=== PATIENT | female | born 1970 | race Caucasian/White ===

== ENCOUNTER 2019-07-22 19:20 | Emergency (ER) | payer SELFPAY ==
[2019-07-22 19:33] VITALS: BP 139/82; PULSE 93; RESP 18; TEMP 36.7; O2SAT 100; BMI 29.3
--- NOTE | 2019-07-22 19:43 | ED_ITS ---
HPI - Headache General: Chief Complaint: Headache Stated Complaint: poss sinus infection Time Seen by Provider: 07/22/19 19:37 Source: patient Mode of arrival: ambulatory Limitations: no limitations History of Present Illness: HPI Narrative: Patient comes in today for complaints of sinus pressure and pain. Patient also reports some congestion in her chest. On exam patient appears mildly unwell. Patient appears in no pain. Review of Systems General: Reports: 10 or more systems reviewed and unremarkable except in HPI and below ENMT: Reports: nasal discharge Resp: Reports: non-productive cough PFSH ED PFSH: Social History Smoking and tobacco status: never smoked Physical Exam Const: COMMON NORMALS: no apparent distress and oriented x3 GENERAL APPEARANCE: cooperative HENMT: COMMON NORMALS: normocephalic, external ears normal, EAC's normal, TM's normal bilaterally and external nose normal HEAD & SCALP: normal to inspection and normocephalic FACE & SINUS: normal facial exam NOSE: external nose normal GENERAL EAR: hearing not grossly impaired EXTERNAL EAR: Yes external ears normal EXTERNAL AUDITORY CANAL: EAC's normal TYMPANIC MEMBRANE: TM's normal bilaterally MOUTH: oral and palatal mucosa normal THROAT: posterior oropharynx abnormal cobblestoning and erythema Eye: COMMON NORMALS: PERRL and EOMs intact bilaterally PUPIL: Yes PERRL Neck/C-Spine: COMMON NORMALS: full ROM and no lymphadenopathy Lymph: LYMPHATIC: no lymphedema noted Chest: COMMONS NORMALS: inspection of chest normal and palpation of chest normal Resp: COMMON NORMALS: normal respiratory effort and clear to auscultation bilaterally AUSCULTATION: clear to auscultation bilaterally Cardio: COMMON NORMALS: regular rate and regular rhythm RATE: regular rate RHYTHM: regular rhythm GI: COMMON NORMALS: normal to inspection, nondistended, normoactive bowel sounds and non-tender : COMMON NORMALS: Yes no CVA tenderness BLADDER/KIDNEY EXAM: Yes no CVA tenderness Back/Pelvis: COMMON NORMALS: no CVA tenderness and thoracic and lumbar spine normal to inspection Extremity: COMMON NORMALS: normal to inspection GENERAL: No edema Neuro: COMMON NORMALS: oriented x3, moves all extremities and no focal motor deficits Psych: COMMON NORMALS: mental status grossly normal and cooperative Skin: COMMON NORMALS: no rashes or lesions noted GENERAL SKIN EXAM: no rashes or lesions noted Course Vital Signs: Vital signs: Vital Signs Temperature 98.0 F 07/22/19 19:33 Pulse Rate 93 07/22/19 19:33 Respiratory Rate 18 07/22/19 19:33 Blood Pressure 139/82 07/22/19 19:33 Pulse Oximetry 100 07/22/19 19:33 MDM - Headache MDM Narrative: Medical decision making narrative: Patient comes in with head congestion and cough for the last 2 to 3 days. Patient has been guarded on what medications to use due to her cervical cancer. Patient appears well. Patient appears in mild pain due to headache. Exam notes posterior pharynx is erythematous, bilateral nasal mucosa are erythematous. Bilateral tympanic membranes are clear. Respirations are even lungs are clear to auscultation. Vital signs are normal. Differential diagnosis includes influenza, rhinosinusitis, viral syndrome, upper respiratory infection. Reviewed exam with patient recommended treatment with dexamethasone injection, to follow with amoxicillin p.o. and Flonase spray. Patient reports understanding of care plan and need for follow-up. Discharge Plan Discharge Patient Disposition: Home, Self-Care Clinical Impression: Acute rhinosinusitis Condition: Stable Prescriptions: New amoxicillin 500 mg tablet 1,000 mg PO BID 10 Days Qty: 40 RF: 0 fluticasone propionate 50 mcg/actuation spray,suspension 1 spray INTRANASAL BID Qty: 15.8 RF: 0 Discharge Orders: Discharge Order (Routine); Ordered 07/22/19 Ordered By: Bayron Garcia Discharge Diet: Usual diet Discharge Activity: Increase activity as tolerated Patient Instructions: Acute Bacterial Rhinosinusitis (ED) Activity Restrictions/Additional Instructions: Drink plenty of fluids Antibiotics as directed Steroid nasal spray for nasal congestion and discomfort Coding Level of Care Code ED Video Editing Internship for Leoncio Fwd Exam Comprehensive
[2019-07-22] MEDS: dexamethasone 10 mg/mL INJ IM (19:49)
[2019-07-22 20:38] VITALS: BP 129/82; PULSE 90; RESP 16; TEMP 36.6; O2SAT 99
== END 2019-07-22 20:03 | disposition home or self-care (01) ==
PROVIDERS: Emergency Provider Nurse Practitioner Family
DX: J01.90 Acute sinusitis, unspecified (principal); C53.9 Malignant neoplasm of cervix uteri, unspecified
CPT/HCPCS: 96372; 96375; 99281; 99283; J1100

== ENCOUNTER 2019-08-23 13:24 | Emergency (ER) | payer SELFPAY ==
[2019-08-23] VITALS (7 sets, daily range): BP systolic 117–130; BP diastolic 75–97; PULSE 77–87; RESP 15–17; TEMP 36.8; O2SAT 97–100; BMI 29.0
--- NOTE | 2019-08-23 13:58 | ED_ITS ---
Documented by User: ZACK Piña 08/24/19 17:23 HPI - Dizziness General: Chief Complaint: Dizziness Stated Complaint: Dizzy, aches and pains, nausea Time Seen by Provider: 08/23/19 13:33 History of Present Illness: HPI Narrative: Patient is a 49-year-old female who comes to the ED with dizziness. Patient has a past medical history of stage IV cervical cancer. Patient woke up today with room spinning dizziness. Patient says it gets worse if she lays flat or if she is up moving around. The dizziness improves if she sits upright. Patient described having some nasal drainage and congestion recently. She also feels a little congested with pressure in the ears. She currently has nausea but has not vomited. Associated symptoms: Reports nausea and nasal congestion; Denies chest pain, chills, headache(s), palpitations or vomiting Associated neuro symptoms: Deny numbness in extremities Review of Systems Const: Denies: fever, chills or fatigue Eyes: Denies: change in vision or eye discomfort ENMT: Reports: nasal discharge and nasal congestion; Denies: throat pain or painful swallowing Card: Denies: chest pain, palpitations, edema, swelling of feet/ankles, shortness of breath on exertion or shortness of breath when lying down Resp: Denies: shortness of breath, productive cough or non-productive cough GI: Reports: abdominal pain (chronic issue since Cervical cancer diagnosis), nausea and diarrhea (chronic); Denies: vomiting, constipation or blood in stool : Denies: flank pain, painful urination or blood in urine Musc: Denies: neck pain, back pain or extremity swelling Skin/Breast: Denies: rash or new lesion Neuro: Reports: dizziness and vertigo; Denies: headache, numbness in extremities or weakness in extremities PFS ED PFSH: Social History Smoking and tobacco status: never smoked Physical Exam Const: COMMON NORMALS: oriented x3 HENMT: COMMON NORMALS: normocephalic HEAD & SCALP: normocephalic TYMPANIC MEMBRANE: TM abnormal TM laterality: right (no erythema) Details: fluid behind TM (white/yellow fluid behind ears) and left (No erythema) Details: fluid behind TM (white/yellow fluid behind ears) MOUTH: oral and palatal mucosa normal THROAT: posterior oropharynx normal and uvula midline Neck/C-Spine: COMMON NORMALS: supple GENERAL: Yes normal visual inspection Resp: COMMON NORMALS: normal respiratory effort, no retractions, no use of accessory muscles and clear to auscultation bilaterally AUSCULTATION: clear to auscultation bilaterally Cardio: COMMON NORMALS: regular rate, regular rhythm, S1 normal heart sound, S2 normal heart sound, no gallops, no clicks, no murmurs and peripheral pulses 2+ throughout RATE: regular rate RHYTHM: regular rhythm HEART SOUNDS: S1 normal and S2 normal PERIPHERAL PULSES: pulses 2+ throughout GI: COMMON NORMALS: normal to inspection, nondistended, normoactive bowel sounds, soft to palpation, non-tender and no masses PALPATION: Yes soft : COMMON NORMALS: Yes no CVA tenderness BLADDER/KIDNEY EXAM: Yes no CVA tenderness Back/Pelvis: COMMON NORMALS: no CVA tenderness Extremity: COMMON NORMALS: normal to inspection and normal capillary refill Neuro: COMMON NORMALS: oriented x3 and moves all extremities Skin: COMMON NORMALS: no rashes or lesions noted GENERAL SKIN EXAM: no rashes or lesions noted Course Reevaluation(s): Reevaluation #1: I spoke with patient after she got some IV fluids and the meclizine dose. Patient says her symptoms of dizziness have greatly improved and she is ready to go home and rest. Time: 15:53 Vital Signs: Vital signs: Vital Signs Temperature 98.2 F 08/23/19 13:50 Pulse Rate 78 08/23/19 16:14 Respiratory Rate 16 08/23/19 16:14 Blood Pressure 118/81 08/23/19 16:14 Pulse Oximetry 100 08/23/19 16:14 MDM - Dizziness Lab Data: Attestation: I reviewed the patient's lab results. Labs: Lab Results 08/23/19 08/23/19 08/23/19 Range/Units 14:36 14:36 14:44 WBC 4.7 (4.0-10.0) 10^3/ uL RBC 3.59 L (4.1-5.3) 10^6/u L Hgb 11.7 (11.5-15.3) g/dL Hct 35.0 L (37.0-47.0) % MCV 97.5 (81-99) fL MCH 32.6 (28.0-34.0) pg MCHC 33.4 (30.0-36.0) g/dL RDW 11.8 L (12.1-15.1) % Plt Count 188 (130-400) 10^3/c mm MPV 8.5 (7.4-10.4) fL Neut % (Auto) 51.6 % Lymph % (Auto) 35.7 % [place] % (Auto) 9.8 % Eos % (Auto) 2.1 % Baso % (Auto) 0.4 % Neut # (Auto) 2.4 (1.8-7.7) 10^3/u L Lymph # (Auto) 1.7 (0.8-4.8) 10^3/u L [place] # (Auto) 0.5 (0.2-0.9) 10^3/u L Eos # (Auto) 0.1 (0.0-0.8) 10^3/u L Baso # (Auto) 0.0 (0.0-0.1) 10^3/u L Nucleated RBC % (a uto) 0 % Nucleated RBCs # 0.0 /100WBC Sodium 142 (136-145) mmol/L Potassium 3.8 (3.5-5.1) mmol/L Chloride 102 (98-107) mmol/L Carbon Dioxide 29 (22-29) mmol/L Anion Gap 14.8 (5-19) BUN 9 (6-20) mg/dL Creatinine 0.7 (0.5-0.9) mg/dL GFR Calculation 89.7 L (90-130) mL/min Glucose 101 (65-115) mg/dL Calculated Osmolal ity 290 (285-295) mOsm/k g Calcium 10.1 (8.5-10.5) mg/dL Total Bilirubin 0.3 (0.15-1.2) mg/dL AST 18 (0-32) U/L ALT 12 (0-33) U/L Alkaline Phosphata se 85 (35-105) IU/L Total Protein 7.2 (6.6-8.7) g/dL Albumin 4.2 (3.5-5.2) g/dL Globulin 3.0 (1.3-4.6) g/dL Urine Color Yellow (Yellow) Urine Appearance Clear (CLEAR) Urine pH 6.5 (5-7) Ur Specific Gravit y 1.010 (1.005-1.030) Urine Protein Neg (Negative) Urine Glucose (UA) Norm (Normal) Urine Ketones Negative (Negative) Urine Blood Neg (Negative) Urine Nitrate Negative (Negative) Urine Bilirubin Neg (NEGATIVE) Urine Urobilinogen Norm (Negative) mg/dL Ur Leukocyte Lena ase Negative (Negative) Urine RBC None (0-2) /hpf Urine WBC None (0-5) /hpf Ur Squamous Epith Cells 0-4 H (0-5) Urine Bacteria Trace (NONE) Imaging Data^: CT Head: Attestation: I personally reviewed and interpreted this imaging study as follows: Radiologist's impression: [place] [id number] CT Scan Report Signed Patient: Valentina Redd Unit #: [id number] : 1970 Age/Sex: 49 / F ADM Date: 08/23/19 Loc: ER Room/Bed: Attending Dr: Ordering Provider/Ordering MD: Adam Reynoso Date of Service: 08/23/19 Procedure(s): CT head wo con* [id number] Accession Number(s): [id number] Report Number: [id number] WS: [id number] CT HEAD TECHNIQUE: Noncontrast CT of the head obtained from the skullbase to the vertex. CLINICAL INFORMATION: vertigo, metastatic cancer history COMPARISON: None. DLP: 777.[address] scans at [facility] use at least one of these dose optimization techniques: automated exposure control; mA and/or kV adjustment per patient size (includes targeted exams where dose is matched to clinical indication); or iterative reconstruction. FINDINGS: No evidence of intracranial hemorrhage or mass effect. Ventricular system and basal cisterns are patent. No extra-axial fluid collections. No evidence of mass or mass effect. Normal marcos-white d ifferentiation. Incidental slightly low-lying cerebellar tonsils. Paranasal sinuses and mastoid air cells are well aerated. .Normal visualized soft tissues. CT/CT head wo con* [id number] IMPRESSION: 1. No evidence of intracranial hemorrhage or mass effect. 2. Normal marcos-white differentiation. 3. No acute intracranial findings. Dictated By: Sam Street MD Signed By: Sam Street MD Signed Date/Time: 08/23/19 1530 DD/ 1524 Discharge Plan Discharge Patient Disposition: Home, Self-Care Clinical Impression: Dizziness Condition: Stable Prescriptions: New meclizine 25 mg tablet 25 mg PO DAILY PRN (Reason: dizziness) Qty: 20 RF: 0 No Action Tylenol Extra Strength 500 mg Tablet 500 mg PO PRN RF: 0 warfarin 2 mg tablet 2 mg PO DAILY RF: 0 Discharge Orders: Discharge Order (Routine); Ordered 08/23/19 Ordered By: Adam Reynoso Discharge Diet: Regular Discharge Activity: Increase activity as tolerated Patient Instructions: Vertigo (ED), Dizziness (ED) Activity Restrictions/Additional Instructions: Follow-up with your PCP in 5 to 7 days for reevaluation. Take the prescribed meclizine as needed for any future dizziness. Make sure you are drinking plenty of fluids and staying hydrated. Discharge Date/Time: 08/23/19 16:15 Coding Level of Care Code ED Resident Care Supervisor for Chg Fwd Exam Comprehensive Documented by User: Ward Navas DO 08/25/19 12:59 HPI - Dizziness General: Chief Complaint: Dizziness Stated Complaint: Dizzy, aches and pains, nausea Time Seen by Provider: 08/23/19 13:33 PFSH ED PFSH: Social History Smoking and tobacco status: never smoked Course Vital Signs: Vital signs: Vital Signs Temperature 98.2 F 08/23/19 13:50 Pulse Rate 78 08/23/19 16:14 Respiratory Rate 16 08/23/19 16:14 Blood Pressure 118/81 08/23/19 16:14 Pulse Oximetry 100 08/23/19 16:14 MDM - Dizziness MDM Narrative: Medical decision making narrative: Reviewed case with midlevel, agree with assessment and plan. Lab Data: Labs: Lab Results 08/23/19 08/23/19 08/23/19 Range/Units 14:36 14:36 14:44 WBC 4.7 (4.0-10.0) 10^3/ uL RBC 3.59 L (4.1-5.3) 10^6/u L Hgb 11.7 (11.5-15.3) g/dL Hct 35.0 L (37.0-47.0) % MCV 97.5 (81-99) fL MCH 32.6 (28.0-34.0) pg MCHC 33.4 (30.0-36.0) g/dL RDW 11.8 L (12.1-15.1) % Plt Count 188 (130-400) 10^3/c mm MPV 8.5 (7.4-10.4) fL Neut % (Auto) 51.6 % Lymph % (Auto) 35.7 % [place] % (Auto) 9.8 % Eos % (Auto) 2.1 % Baso % (Auto) 0.4 % Neut # (Auto) 2.4 (1.8-7.7) 10^3/u L Lymph # (Auto) 1.7 (0.8-4.8) 10^3/u L [place] # (Auto) 0.5 (0.2-0.9) 10^3/u L Eos # (Auto) 0.1 (0.0-0.8) 10^3/u L Baso # (Auto) 0.0 (0.0-0.1) 10^3/u L Nucleated RBC % (a uto) 0 % Nucleated RBCs # 0.0 /100WBC Sodium 142 (136-145) mmol/L Potassium 3.8 (3.5-5.1) mmol/L Chloride 102 (98-107) mmol/L Carbon Dioxide 29 (22-29) mmol/L Anion Gap 14.8 (5-19) BUN 9 (6-20) mg/dL Creatinine 0.7 (0.5-0.9) mg/dL GFR Calculation 89.7 L (90-130) mL/min Glucose 101 (65-115) mg/dL Calculated Osmolal ity 290 (285-295) mOsm/k g Calcium 10.1 (8.5-10.5) mg/dL Total Bilirubin 0.3 (0.15-1.2) mg/dL AST 18 (0-32) U/L ALT 12 (0-33) U/L Alkaline Phosphata se 85 (35-105) IU/L Total Protein 7.2 (6.6-8.7) g/dL Albumin 4.2 (3.5-5.2) g/dL Globulin 3.0 (1.3-4.6) g/dL Urine Color Yellow (Yellow) Urine Appearance Clear (CLEAR) Urine pH 6.5 (5-7) Ur Specific Gravit y 1.010 (1.005-1.030) Urine Protein Neg (Negative) Urine Glucose (UA) Norm (Normal) Urine Ketones Negative (Negative) Urine Blood Neg (Negative) Urine Nitrate Negative (Negative) Urine Bilirubin Neg (NEGATIVE) Urine Urobilinogen Norm (Negative) mg/dL Ur Leukocyte Lena ase Negative (Negative) Urine RBC None (0-2) /hpf Urine WBC None (0-5) /hpf Ur Squamous Epith Cells 0-4 H (0-5) Urine Bacteria Trace (NONE) Discharge Plan Discharge Patient Disposition: Home, Self-Care Clinical Impression: Dizziness Condition: Stable Prescriptions: New meclizine 25 mg tablet 25 mg PO DAILY PRN (Reason: dizziness) Qty: 20 RF: 0 No Action Tylenol Extra Strength 500 mg Tablet 500 mg PO PRN RF: 0 warfarin 2 mg tablet 2 mg PO DAILY RF: 0 Discharge Orders: Discharge Order (Routine); Ordered 08/23/19 Ordered By: Adam Reynoso Discharge Diet: Regular Discharge Activity: Increase activity as tolerated Patient Instructions: Vertigo (ED), Dizziness (ED) Activity Restrictions/Additional Instructions: Follow-up with your PCP in 5 to 7 days for reevaluation. Take the prescribed meclizine as needed for any future dizziness. Make sure you are drinking plenty of fluids and staying hydrated. Discharge Date/Time: 08/23/19 16:15 Coding Level of Care Code ED Resident Care Supervisor for Leoncio Fwd Exam Comprehensive
--- NOTE | 2019-08-23 14:21 | CT_ITS ---
WS: [id number] CT HEAD TECHNIQUE: Noncontrast CT of the head obtained from the skullbase to the vertex. CLINICAL INFORMATION: vertigo, metastatic cancer history COMPARISON: None. DLP: 777.[address] scans at [facility] use at least one of these dose optimization techniques: automat ed exposure control; mA and/or kV adjustment per patient size (includes targeted exams where dose is matched to clinical indication); or iterative reconstruction. FINDINGS: No evidence of intracranial hemorrhage or mass effect. Ventricular system and basal cisterns are thrasher nt. No extra-axial fluid collections. No evidence of mass or mass effect. Normal marcos-white different iation. Incidental slightly low-lying cerebellar tonsils. Paranasal sinuses and mastoid air cells are well aerated. .Normal visualized soft tissues. CT/CT head wo con* [id number] IMPRESSION: 1. No evidence of intracranial hemorrhage or mass effect. 2. Normal marcos-white differentiation. 3. No acute intracranial findings.
[2019-08-23 14:41] LABS: Basophils % 0.4 %; Eosinophils # 0.1 10^3/uL (0.0-0.8); Eosinophils % 2.1 %; Hemoglobin 11.7 g/dL (11.5-15.3); Lymphocytes # 1.7 10^3/uL (0.8-4.8); Lymphocytes % 35.7 %; Mean Corpuscular HGB Conc 33.4 g/dL (30.0-36.0); Mean Corpuscular Hemoglobin 32.6 pg (28.0-34.0); Mean Corpuscular Volume 97.5 fL (81-99); Mean Platelet Volume 8.5 fL (7.4-10.4); Monocytes # 0.5 10^3/uL (0.2-0.9); Monocytes % 9.8 %; Neutrophils # 2.4 10^3/uL (1.8-7.7); Neutrophils % 51.6 %; Nucleated Red Blood Cells % 0 %; Platelet Count 188 10^3/cmm (130-400); Red Blood Count 3.59 10^6/uL (4.1-5.3); Red Cell Distribution Width 11.8 % (12.1-15.1); White Blood Count 4.7 10^3/uL (4.0-10.0)
[2019-08-23] MEDS: meclizine 25 mg tablet PO (14:43)
[2019-08-23] MEDS: sodium chloride 0.9% 1,000 ML 999 ML IV (14:44)
[2019-08-23 14:55] LABS: Bilirubin Urine Neg (NEGATIVE); Blood Urine Neg (Negative); Glucose Urine UA Norm (Normal); Ketones Urine Negative (Negative); Leukocyte Esterase Urine Negative (Negative); Nitrate Urine Negative (Negative); Protein Urine Neg (Negative); Urine Appearance Clear (CLEAR); Urine Color Yellow (Yellow); Urobilinogen Urine Norm (Negative); pH Urine 6.5 (5-7)
[2019-08-23 14:57] LABS: Alanine Aminotransferase 12 U/L (0-33); Albumin Level 4.2 g/dL (3.5-5.2); Alkaline Phosphatase 85 IU/L (35-105); Anion Gap 14.8 (5-19); Aspartate Amino Transferase 18 U/L (0-32); Blood Urea Nitrogen 9 mg/dL (6-20); Calcium 10.1 mg/dL (8.5-10.5); Carbon Dioxide 29 mmol/L (22-29); Chloride 102 mmol/L (98-107); Glomerular Filtration Rate 89.7 mL/min (90-130); Glucose 101 mg/dL (65-115); Osmolality Calculated 290 mOsm/kg (285-295); Potassium 3.8 mmol/L (3.5-5.1); Sodium 142 mmol/L (136-145); Total Bilirubin 0.3 mg/dL (0.15-1.2); Total Protein 7.2 g/dL (6.6-8.7)
[2019-08-23 15:08] LABS: Add Urine Culture? No; Bacteria Urine TRACE; Squamous Epithelial Cell Urine 0-4 (0-5)
== END 2019-08-23 16:15 | disposition home or self-care (01) ==
PROVIDERS: Emergency Provider Physician Assistant
DX: R42 Dizziness and giddiness (principal)
CPT/HCPCS: 12345; 36415; 70450; 80053; 81001; 85025; 96360; 96361; 99284; J7030; J8597

== ENCOUNTER 2019-09-29 10:28 | Outpatient (CLI) | payer MEDICAID, SELFPAY ==
--- NOTE | 2019-09-29 | USCV_ITS ---
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 The following venous structures were evaluated: internal jugular vein, subclavian vein, axillary vein, and brachial veins. In addition, the basilic vein, cephalic vein, radial vein, and ulnar vein. Serial compression, augmentation maneuvers, and spectral Doppler flow evaluation were performed. FINDINGS: Normal 2-D, color Doppler and phasicity noted in the left upper extremity venous system extending from the left internal jugular vein through the main forearm. No thrombosis or occlusion noted. Venous catheter noted in the left subclavian vein. CONCLUSIONS No left upper extremity DVT. Dr. Gay Dyer DO (Electronically Signed) Final Date: 29 September 2019 16:14 S
== END 2019-09-29 10:29 | disposition home or self-care (01) ==
LOC: RAD 10:32
PROVIDERS: PCP Family Medicine; Visit Provider Family Medicine
DX: I82.A12 Acute embolism and thrombosis of left axillary vein (principal); I82.B19 Acute embolism and thrombosis of unspecified subclavian vein
CPT/HCPCS: 93971

== ENCOUNTER 2019-11-17 20:14 | Emergency (ER) | payer MEDICAID, SELFPAY ==
[2019-11-17 20:25] VITALS: BP 123/87; PULSE 89; RESP 18; TEMP 36.8; O2SAT 98; BMI 34.3
--- NOTE | 2019-11-17 20:43 | ED_ITS ---
HPI - Abdominal Pain General: Chief Complaint: Abdominal Pain Stated Complaint: abd pain Time Seen by Provider: 11/17/19 20:34 History of Present Illness: HPI narrative: Patient is a 49-year-old female comes to the ED with abdominal pain. Patient has a past medical history of stage IV cervical cancer. Abdominal pain started about a week ago and has continued to become more painful. Location of the abdominal pain is the left lower quadrant and she says pain is moving across the lower abdomen over to right side. She rates the pain an 8 out of 10. Pain is constant. She started to have some nausea with the pain. This pain is similar to how her pain p resented when she first was diagnosed with cervical cancer. Patient that her last imaging of the abdomen to check for cancer was performed in April and cancer was in remission. Patient does endorse some constipation. She says her last bowel movement though was this morning and she did have to strain some. Denies any chest pain, shortness of breath, fever, chills, dysuria, hematuria, vomiting and bloody stool. Associated Symptoms: Reports constipation and nausea; Denies chills, diarrhea, dysuria, fever(s), hematochezia, hematuria and vomiting Review of Systems Const: Denies: fever(s), chills or fatigue Eyes: Denies: change in vision or eye discomfort ENMT: Denies: throat pain, odynophagia, nasal discharge or nasal congestion Card: Denies: chest pain, palpitations, edema, swelling of feet/ankles, dyspnea on exertion or orthopnea Resp: Denies: dyspnea, productive cough or non-productive cough GI: Reports: abdominal pain, nausea and constipation; Denies: vomiting, diarrhea or hematochezia : Denies: flank pain, dysuria or hematuria Musc: Denies: neck pain, back pain or extremity swelling Skin/Breast: Denies: rash or new lesions Neuro: Denies: headache(s), numbness in extremities or weakness in extremities PFSH ED PFSH: Social History Smoking and tobacco status: never smoked Physical Exam Const: COMMON NORMALS: patient oriented x3 and alert GENERAL APPEARANCE: cooperative HENMT: COMMON NORMALS: normocephalic HEAD & SCALP: normocephalic MOUTH: Normal oral and palatal mucosa present THROAT: posterior oropharynx normal and uvula midline Eye: COMMON NORMALS: Equal, round and reactive pupils present PUPIL: Yes Equal, round and reactive pupils present Neck/C-Spine: COMMON NORMALS: supple GENERAL: Yes normal visual inspection Resp: COMMON NORMALS: normal respiratory effort, No retractions, No use of accessory muscles and clear to auscultation bilaterally AUSCULTATION: clear to auscultation bilaterally Cardio: COMMON NORMALS: regular rate, regular rhythm, S1 normal heart sound present, S2 normal heart sound present, No gallops present (Cardio), No clicks present (Cardio), No murmurs present (Cardio) and Peripheral pulses 2+ throughout RATE: regular rate RHYTHM: regular rhythm HEART SOUNDS: S1 normal heart sound present and S2 normal heart sound present PERIPHERAL PULSES: Peripheral pulses 2+ throughout GI: COMMON NORMALS: Normal to inspection, nondistended, normoactive bowel sounds present, Soft to palpation and no masses PALPATION: Yes Soft to p alpation and Yes Tenderness to palpation present (GI) Details: LLQ (moderate tenderness) : COMMON NORMALS: Yes no CVA tenderness BLADDER/KIDNEY EXAM: Yes no CVA tenderness Back/Pelvis: COMMON NORMALS: no CVA tenderness Extremity: COMMON NORMALS: normal to inspection and no pedal edema Neuro: COMMON NORMALS: patient oriented x3 SENSORIUM/ORIENTATION: Yes alert GAIT: Yes Normal gait present Skin: COMMON NORMALS: no rashes or lesions noted GENERAL SKIN EXAM: no rashes or lesions noted and dry skin Course Vital Signs: Vital signs: Vital Signs Temperature 98.3 F 11/17/19 20:25 Pulse Rate 125 H 11/17/19 23:24 Respiratory Rate 20 H 11/18/19 01:40 Blood Pressure 122/71 11/17/19 23:24 Pulse Oximetry 98 11/18/19 01:40 MDM - Abdominal Pain MDM Narrative: Medical decision making narrative: Patient is a 49-year-old f emale comes to the ED with left lower quadrant pain. Patient has a recent history of cervical cancer and is concerned that abdominal pain could be a sign that cancer is progressing. CBC, CMP, UA and lipase were all unremarkable. CT of the abdomen pelvis was performed and previous CT scans of patient from [facility] were sent over for our radiologist to review and compare findings of recent CT study. First CT report the radiologist did not have previous CT scans to compare to. Once prior CT scans were available to radiologist an addendum report was made. In the addendum report showed that no indicators of cancer progression compared to previous CT scans. Patient was told about findings and she plans to set up an appointment with her new oncologist in the next several weeks. Told patient to contact [facility] [place] if she needs any of her records transferred to new oncologist. Patient's pain and nausea was controlled with IV fluids, Zofran and morphine. Patient stated she did not want any prescription for pain meds upon discharge and said she would just take Tylenol as needed for pain. Patient also says she has some Compazine at home to help with any nausea. Patient discharged home. Patient understood and agrees with plan. Lab Data: Attestation: I reviewed the patient's lab results. Labs: Lab Results 11/17/19 11/17/19 11/17/19 Range/Units 20:45 20:45 20:45 WBC 6.6 (4.0-10.0) 10^3/ uL RBC 3.65 L (4.1-5.3) 10^6/u L Hgb 11.6 (11.5-15.3) g/dL Hct 33.9 L (37.0-47.0) % MCV 92.9 (81-99) fL MCH 31.8 (28.0-34.0) pg MCHC 34.2 (30.0-36.0) g/dL RDW 11.5 L (12.1-15.1) % Plt Count 199 (130-400) 10^3/c mm MPV 8.4 (7.4-10.4) fL Neut % (Auto) 53.3 % Lymph % (Auto) 35.6 % [place] % (Auto) 8.6 % Eos % (Auto) 1.7 % Baso % (Auto) 0.5 % Neut # (Auto) 3.5 (1.8-7.7) 10^3/u L Lymph # (Auto) 2.4 (0.8-4.8) 10^3/u L [place] # (Auto) 0.6 (0.2-0.9) 10^3/u L Eos # (Auto) 0.1 (0.0-0.8) 10^3/u L Baso # (Auto) 0.0 (0.0-0.1) 10^3/u L Nucleated RBC % (a uto) 0 % Nucleated RBCs # 0.0 /100WBC Sodium 143 (136-145) mmol/L Potassium 3.5 (3.5-5.1) mmol/L Chloride 105 (98-107) mmol/L Carbon Dioxide 23 (22-29) mmol/L Anion Gap 18.5 (5-19) BUN 9 (6-20) mg/dL Creatinine 0.7 (0.5-0.9) mg/dL GFR Calculation 89.7 L (90-130) mL/min Glucose 88 (65-115) mg/dL Calculated Osmolal ity 291 (285-295) mOsm/k g Calcium 9.8 (8.5-10.5) mg/dL Total Bilirubin 0.2 (0.15-1.2) mg/dL AST 18 (0-32) U/L ALT 13 (0-33) U/L Alkaline Phosphata se 107 H (35-105) IU/L Total Protein 6.9 (6.6-8.7) g/dL Albumin 4.4 (3.5-5.2) g/dL Globulin 2.5 (1.3-4.6) g/dL Lipase 39 (13-60) U/L HCG, Qual Negative (Negative) Urine Color (Yellow) Urine Appearance (CLEAR) Urine pH (5-7) Ur Specific Gravit y (1.005-1.030) Urine Protein (Negative) Urine Glucose (UA) (Normal) Urine Ketones (Negative) Urine Blood (Negative) Urine Nitrate (Negative) Urine Bilirubin (NEGATIVE) Urine Urobilinogen (Negative) mg/dL Ur Leukocyte Lena ase (Negative) Urine RBC (0-2) /hpf Urine WBC (0-5) /hpf Ur Squamous Epith Cells (0-5) Urine Bacteria (NONE) Urine Mucus 11/17/19 Range/Units 20:52 WBC (4.0-10.0) 10^3/ uL RBC (4.1-5.3) 10^6/u L Hgb (11.5-15.3) g/dL Hct (37.0-47.0) % MCV (81-99) fL MCH (28.0-34.0) pg MCHC (30.0-36.0) g/dL RDW (12.1-15.1) % Plt Count (130-400) 10^3/c mm MPV (7.4-10.4) fL Neut % (Auto) % Lymph % (Auto) % [place] % (Auto) % Eos % (Auto) % Baso % (Auto) % Neut # (Auto) (1.8-7.7) 10^3/u L Lymph # (Auto) (0.8-4.8) 10^3/u L [place] # (Auto) (0.2-0.9) 10^3/u L Eos # (Auto) (0.0-0.8) 10^3/u L Baso # (Auto) (0.0-0.1) 10^3/u L Nucleated RBC % (a uto) % Nucleated RBCs # /100WBC Sodium (136-145) mmol/L Potassium (3.5-5.1) mmol/L Chloride (98-107) mmol/L Carbon Dioxide (22-29) mmol/L Anion Gap (5-19) BUN (6-20) mg/dL Creatinine (0.5-0.9) mg/dL GFR Calculation (90-130) mL/min Glucose (65-115) mg/dL Calculated Osmolal ity (285-295) mOsm/k g Calcium (8.5-10.5) mg/dL Total Bilirubin (0.15-1.2) mg/dL AST (0-32) U/L ALT (0-33) U/L Alkaline Phosphata se (35-105) IU/L Total Protein (6.6-8.7) g/dL Albumin (3.5-5.2) g/dL Globulin (1.3-4.6) g/dL Lipase (13-60) U/L HCG, Qual (Negative) Urine Color Yellow (Yellow) Urine Appearance Hazy A (CLEAR) Urine pH 5 (5-7) Ur Specific Gravit y 1.020 (1.005-1.030) Urine Protein Neg (Negative) Urine Glucose (UA) Norm (Normal) Urine Ketones Negative (Negative) Urine Blood Neg (Negative) Urine Nitrate Negative (Negative) Urine Bilirubin Neg (NEGATIVE) Urine Urobilinogen Norm (Negative) mg/dL Ur Leukocyte Lena ase Negative (Negative) Urine RBC 0-4 H (0-2) /hpf Urine WBC 5-10 H (0-5) /hpf Ur Squamous Epith Cells 10-15 H (0-5) Urine Bacteria 1+ H (NONE) Urine Mucus 1+ Imaging Data ^: CT Abd/Pel: Attestation: I personally reviewed and interpreted this imaging study as follows: Radiologist's impression: [address] [address] [address] Scan Report Signed Patient: Valentina Redd Unit #: [id number] : 1970 Age/Sex: 49 / F ADM Date: 11/17/19 Loc: ER Room/Bed: Attending Dr: Ordering Provider/Ordering MD: Adam Reynoso Date of Service: 11/17/19 Procedure(s): CT abdomen pelvis w con* [id number] Accession Number(s): [id number] Report Number: [id number] PROCEDURE INFORMATION: Exam: CT Abdomen And Pelvis With Contrast Exam date and time: 11/17/2019 10:23 PM Age: 49 years old Clinical indication: Abdominal pain; Additional info: Abdom pain TECHNIQUE: Imaging protocol: Computed tomography of the abdomen and pelvis with intravenous contrast. Radiation optimization: All CT scans at this facility use at least one of these dose optimization techniques: automated exposure control; mA and/or kV adjustment per patient size (includes targeted exams where dose is matched to clinical indication); or iterative reconstruction. Contrast material: OMNI 300; Contrast volume: 95 ml; Contrast route: INTRAVENOUS (IV); COMPARISON: No relevant prior studies available. RADIATION DOSE METRICS: Total DLP (mGy-cm): 1517.97 FINDINGS: Lungs: There is subsegmental atelectasis in the lung bases. Liver: There is a 9 mm cyst in the inferior right lobe of the liver. Gallbladder and bile ducts: The gallbladder is normal. There is no biliary dilation. Pancreas: The pancreas is unremarkable. Spleen: The spleen is unremarkable. Adrenals: The adrenal glands are unremarkable. Kidneys and ureters: The kidneys are unremarkable. No hydronephrosis or stones. No ureteral dilation. Stomach and bowel: The stomach is decompressed, preventing meaningful evaluation of wall thickness. The small bowel is nondilated. The colon is unremarkable. Appendix: The appendix is normal. Intraperitoneal space: There is no intraperitoneal free air. Vasculature: The aorta is unremarkable. There is no aneurysm. 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 Lymph nodes: There are enlarged left para-aortic retroperitoneal lymph nodes measuring 2.1 x 2.0 cm on axial series 2, image 41 and 1.8 x 1.5 cm on axial series 2, image 46. There are no enlarged lymph nodes in the pelvis or inguinal regions. There is a mildly prominent mesenteric lymph node with adjacent fat stranding in the right mid abdomen measuring 15 x 10 mm on axial series 2, image 47. Bladder: The urinary bladder is nondistended. The wall is mildly thickened and there is pericystic edema. Reproductive: There is fat stranding around the cervix and upper vagina. The cervix is hypoenhancing relative to the uterus. The uterus has normal contours. There is no adnexal mass or cyst. Bones/joints: There is mild degenerative disease in the lower lumbar spine. The pelvis and hips are intact. Soft tissues: The abdominal wall is intact. CT/CT abdomen pelvis w con* [id number] IMPRESSION: 1. Mild bladder wall thickening and pericystic edema. Possible cystitis. Correlate with urinalysis. 2. Hypoenhancement of the cervix with fat stranding surrounding the cervix and upper vagina. Findings could represent cervical malignancy or pelvic inflammatory disease. 3. Retroperitoneal and mesenteric lymphadenopathy. Possible metastases or reactive lymph nodes. Comparison with prior CT is recommended (images are not available currently). An addendum to this report will be issued if they become available. 4. 2 cm distal splenic artery pseudoaneurysm. Recommend comparison with the prior CT. Radiation Dose CTDIVOL = (mGy): DLP = 1517.97 (mGy-cm) Dictated By: Cb Lau MD Signed By: Cb Lau MD Signed Date/Time: 11/17/192256 DD/ 55 Discharge Plan Discharge Patient Disposition: Home, Self-Care Clinical Impression: History of cervical cancer Abdominal pain Qualifiers: Abdominal location: left lower quadrant Qualified Code(s): R10.32 - Left lower quadrant pain Condition: Stable Prescriptions: No Action acetaminophen [Tylenol Extra Strength] 500 mg Tablet 1,000 mg PO PRN RF: 0 Discharge Orders: Discharge Order (Routine); Ordered 11/18/19 Ordered By: Adam Reynoso Referrals: Haley Gomes MD [Primary Care Provider] - Discharge Diet: Regular Discharge Activity: Increase activity as tolerated Patient Instructions: Abdominal Pain (ED) Activity Restrictions/Additional Instructions: Call and get established with new oncologist as soon as possible. You can contact [facility] [place] to get records sent over to oncologist. Continue taking all home medications. Drink plenty of fluids and stay hydrated. Take Tylenol for any pain. You can return to the ED for reevaluation if symptoms worsen. Discharge Date/Time: 11/18/19 03:05 Coding Level of Care Code ED Research Analyst for Leonc[employer] Fwjayda Exam Comprehensive
[2019-11-17 20:55] LABS: Basophils % 0.5 %; Eosinophils # 0.1 10^3/uL (0.0-0.8); Eosinophils % 1.7 %; Hematocrit 33.9 % (37.0-47.0); Hemoglobin 11.6 g/dL (11.5-15.3); Lymphocytes # 2.4 10^3/uL (0.8-4.8); Lymphocytes % 35.6 %; Mean Corpuscular HGB Conc 34.2 g/dL (30.0-36.0); Mean Corpuscular Hemoglobin 31.8 pg (28.0-34.0); Mean Corpuscular Volume 92.9 fL (81-99); Mean Platelet Volume 8.4 fL (7.4-10.4); Monocytes # 0.6 10^3/uL (0.2-0.9); Monocytes % 8.6 %; Neutrophils # 3.5 10^3/uL (1.8-7.7); Neutrophils % 53.3 %; Nucleated Red Blood Cells % 0 %; Platelet Count 199 10^3/cmm (130-400); Red Blood Count 3.65 10^6/uL (4.1-5.3); Red Cell Distribution Width 11.5 % (12.1-15.1); White Blood Count 6.6 10^3/uL (4.0-10.0)
[2019-11-17 21:21] LABS: Alanine Aminotransferase 13 U/L (0-33); Albumin Level 4.4 g/dL (3.5-5.2); Alkaline Phosphatase 107 IU/L (35-105); Anion Gap 18.5 (5-19); Aspartate Amino Transferase 18 U/L (0-32); Blood Urea Nitrogen 9 mg/dL (6-20); Calcium 9.8 mg/dL (8.5-10.5); Carbon Dioxide 23 mmol/L (22-29); Chloride 105 mmol/L (98-107); Globulin 2.5 g/dL (1.3-4.6); Glomerular Filtration Rate 89.7 mL/min (90-130); Glucose 88 mg/dL (65-115); Lipase 39 U/L (13-60); Osmolality Calculated 291 mOsm/kg (285-295); Potassium 3.5 mmol/L (3.5-5.1); Sodium 143 mmol/L (136-145); Total Bilirubin 0.2 mg/dL (0.15-1.2); Total Protein 6.9 g/dL (6.6-8.7)
[2019-11-17] MEDS: morphine 4 mg/mL SDV 1 mL IVP (21:34)
[2019-11-17] MEDS: ondansetron 2 mg/ML SDV 2 mL 4 MG IVP (21:34)
[2019-11-17] MEDS: sodium chloride 0.9% 500 ML 999 ML IV (21:34)
[2019-11-17 21:37] VITALS: BP 149/95; PULSE 85; RESP 14; O2SAT 99
[2019-11-17 21:42] LABS: Blood Urine Neg (Negative); Glucose Urine UA Norm (Normal); Ketones Urine Negative (Negative); Protein Urine Neg (Negative); Urine Appearance Hazy (CLEAR); Urine Color Yellow (Yellow); pH Urine 5 (5-7)
[2019-11-17 21:43] LABS: Add Urine Microscopic? YES; Bilirubin Urine Neg (NEGATIVE); Leukocyte Esterase Urine Negative (Negative); Nitrate Urine Negative (Negative); Urobilinogen Urine Norm (Negative)
--- NOTE | 2019-11-17 22:07 | CTR_ITS ---
PROCEDURE INFORMATION: Exam: CT Abdomen And Pelvis With Contrast Exam date and time: 11/17/2019 10:23 PM Age: 49 years old Clinical indication: Abdominal pain; Additional info: Abdom pain TECHNIQUE: Imaging protocol: Computed tomography of the abdomen and pelvis with intravenous contrast. Radiation optimization: All CT scans at this facility use at least one of these dose optimization techniques: automated exposure control; mA and/or kV adjustment per patient size (includes targeted exams where dose is matched to clinical indication); or iterative reconstruction. Contrast material: OMNI 300; Contrast volume: 95 ml; Contrast route: INTRAVENOUS (IV); COMPARISON: No relevant prior studies available. RADIATION DOSE METRICS: Total DLP (mGy-cm): 1517.97 FINDINGS: Lungs: There is subsegmental atelectasis in the lung bases. Liver: There is a 9 mm cyst in the inferior right lobe of the liver. Gallbladder and bile ducts: The gallbladder is normal. There is no biliary dilation. Pancreas: The pancreas is unremarkable. Spleen: The spleen is unremarkable. Adrenals: The adrenal glands are unremarkable. Kidneys and ureters: The kidneys are unremarkable. No hydronephrosis or stones. No ureteral dilation. Stomach and bowel: The stomach is decompressed, preventing meaningful evaluation of wall thickness. The small bowel is nondilated. The colon is unremarkable. Appendix: The appendix is normal. Intraperitoneal space: There is no intraperitoneal free air. Vasculature: The aorta is unremarkable. There is no aneurysm. 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 Lymph nodes: There are enlarged left para-aortic retroperitoneal lymph nodes measuring 2.1 x 2.0 cm on axial series 2, image 41 and 1.8 x 1.5 cm on axial series 2, image 46. There are no enlarged lymph nodes in the pelvis or inguinal regions. There is a mildly prominent mesenteric lymph node with adjacent fat stranding in the right mid abdomen measuring 15 x 10 mm on axial series 2, image 47. Bladder: The urinary bladder is nondistended. The wall is mildly thickened and there is pericystic edema. Reproductive: There is fat stranding around the cervix and upper vagina. The cervix is hypoenhancing relative to the uterus. The uterus has normal contours. There is no adnexal mass or cyst. Bones/joints: There is mild degenerative disease in the lower lumbar spine. The pelvis and hips are intact. Soft tissues: The abdominal wall is intact. CT/CT abdomen pelvis w con* [id number] IMPRESSION: 1. Mild bladder wall thickening and pericystic edema. Possible cystitis. Correlate with urinalysis. 2. Hypoenhancement of the cervix with fat stranding surrounding the cervix and upper vagina. Findings could represent cervical malignancy or pelvic inflammatory disease. 3. Retroperitoneal and mesenteric lymphadenopathy. Possible metastases or reactive lymph nodes. Comparison with prior CT is recommended (images are not available currently). An addendum to this report will be issued if they become available. 4. 2 cm distal splenic artery pseudoaneurysm. Recommend comparison with the prior CT. Radiation Dose CTDIVOL = (mGy): DLP = 1517.97 (mGy-cm)
[2019-11-17 22:14] LABS: Bacteria Urine 1+; Mucus Urine 1+; RBC Urine 0-4 /hpf (0-2)
[2019-11-17 22:21] LABS: HCG, Serum Qual Negative (Negative)
[2019-11-17] MEDS: iohexol 300 mg/mL 100 mL Btl IV (22:32)
[2019-11-17 23:24] VITALS: BP 122/71; PULSE 125; RESP 14; O2SAT 98
[2019-11-18 01:40] VITALS: RESP 20; O2SAT 98
[2019-11-18] MEDS: morphine 4 mg/mL SDV 1 mL IVP (01:40)
[2019-11-18 03:01] VITALS: BP 120/70; PULSE 76; RESP 18; O2SAT 98
== END 2019-11-18 03:05 | disposition home or self-care (01) ==
PROVIDERS: Emergency Medicine; Emergency Provider Physician Assistant; PCP Family Medicine
DX: R10.32 Left lower quadrant pain (principal); Z85.41 Personal history of malignant neoplasm of cervix uteri
CPT/HCPCS: 12345; 36415; 74177; 80053; 81001; 83690; 84703; 85025; 96374; 96375; 96376; 99283; J2270; J2405; J7040; Q9967

== ENCOUNTER 2021-12-18 11:45 | Outpatient (CLI) | payer MEDICARE, MEDICAID, SELFPAY ==
[2021-12-18 12:54] LABS: Basophils % 0.5 %; Eosinophils # 0.1 10^3/uL (0.0-0.8); Eosinophils % 1.1 %; Hematocrit 32.2 % (37.0-47.0); Hemoglobin 10.9 g/dL (11.5-15.3); Lymphocytes # 1.2 10^3/uL (0.8-4.8); Lymphocytes % 18.8 %; Mean Corpuscular HGB Conc 33.9 g/dL (30.0-36.0); Mean Corpuscular Hemoglobin 30.7 pg (28.0-34.0); Mean Corpuscular Volume 90.7 fl (81-99); Mean Platelet Volume 10.3 fL (7.4-10.4); Monocytes # 0.1 10^3/uL (0.2-0.9); Monocytes % 1.8 %; Neutrophils # 4.88 10^3/uL (1.8-7.7); Neutrophils % 77.6 %; Nucleated Red Blood Cells % 0 %; Platelet Count 169 10^3/cmm (130-400); Red Blood Count 3.55 10^6/uL (4.1-5.3); Red Cell Distribution Width 13.3 % (12.1-15.1); White Blood Count 6.3 10^3/uL (4.0-10.0)
== END 2021-12-18 11:46 | disposition home or self-care (01) ==
PROVIDERS: PCP Family Medicine; Visit Provider Obstetrics & Gynecology
DX: C53.9 Malignant neoplasm of cervix uteri, unspecified (principal)
CPT/HCPCS: 36415; 85025

== ENCOUNTER 2021-12-24 11:55 | Outpatient (CLI) | payer MEDICARE, MEDICAID, SELFPAY ==
[2021-12-24 13:16] LABS: Basophils # 0.1 10^3/uL (0.0-0.1); Basophils % 0.9 %; Eosinophils # 0.1 10^3/uL (0.0-0.8); Eosinophils % 1.7 %; Hematocrit 30.2 % (37.0-47.0); Lymphocytes # 1.3 10^3/uL (0.8-4.8); Lymphocytes % 17.3 %; Mean Corpuscular HGB Conc 33.1 g/dL (30.0-36.0); Mean Corpuscular Hemoglobin 30.3 pg (28.0-34.0); Mean Corpuscular Volume 91.5 fl (81-99); Mean Platelet Volume 10.7 fL (7.4-10.4); Monocytes # 0.1 10^3/uL (0.2-0.9); Monocytes % 1.2 %; Neutrophils # 4.88 10^3/uL (1.8-7.7); Nucleated Red Blood Cells % 0 %; Platelet Count 190 10^3/cmm (130-400); Red Cell Distribution Width 13.2 % (12.1-15.1); White Blood Count 7.6 10^3/uL (4.0-10.0)
[2021-12-24 14:24] LABS: Neutrophils % 80.9 %; Slide Review Slide Review Perform
== END 2021-12-24 11:56 | disposition home or self-care (01) ==
PROVIDERS: PCP Family Medicine; Visit Provider Obstetrics & Gynecology
DX: C53.9 Malignant neoplasm of cervix uteri, unspecified (principal)
CPT/HCPCS: 85025

== ENCOUNTER 2021-12-26 09:02 | Emergency (ER) | payer MEDICARE, MEDICAID, SELFPAY ==
[2021-12-26 09:10] VITALS: BP 122/77; PULSE 91; RESP 18; TEMP 36.6; O2SAT 100; BMI 30.9
--- NOTE | 2021-12-26 09:18 | ECG_ITS ---
[facility] Test Date: 2021-12-26 Pat Name: Valentina Redd Department: Room: Gender: Female Youth Services Specialist: : 1970 Requested By: Ward Pascual Order Number: [id number] Yuni MD: Toan Benitez M.D. Measurements Intervals Tanner Rate: 88 P: 34 CA: 130 QRS: -27 QRSD: 96 T: 17 QT: 371 QTc: 449 Interpretive Statements SINUS RHYTHM LOW QRS VOLTAGE IN PRECORDIAL LEADS [QRS DEFLECTION < 1.0 mV IN CHEST LEADS] POSSIBLE ANTERIOR MYOCARDIAL INFARCTION , PROBABLY OLD [30 ms Q WAVE IN V3/V4, OR R < 0.2 mV IN V4] No previous ECG available for comparison Electronically Signed On 12-26-2021 16:29:31 CDT by Toan Benitez M.D. [email or web address]
--- NOTE | 2021-12-26 09:18 | XR_ITS ---
WS: [id number] Exam: XR chest 1V portable [id number] Date/Time of Exam: 12/26/2021 9:22 AM Reason For Exam: chest pain No priors. The lungs are clear and fully expanded. Normal cardiomediastinal silhouette and regional bony element s. Left-sided subclavian port noted which appears to end in the lower one third of the SVC in good po sition. Monitoring leads superimpose the chest. XR/XR chest 1V portable [id number] IMPRESSION: 1. No acute cardiopulmonary finding. 2. Left subclavian port in satisfactory position.
--- NOTE | 2021-12-26 09:20 | W.ED.CHESTPA ---
HPI - Chest Pain General: Chief Complaint: Chest Pain Stated Complaint: CHEST PAIN Time Seen by Provider: 12/26/21 09:04 Source: patient Limitations: no limitations History of Present Illness: 51-year-old female presents emergency room via EMS complaining of shortness of breath. She was in her usual state of health when she went to bed last night and this morning when she woke up she was tachypneic had severe chest pain. Route she was given some pain medications as well as aspirin. She does feel somewhat better now not requiring any oxygen. Patient has a known history of cervical cancer and is currently being treated by oncology in [place]. She had initial treatment and then has had a recurrence for which she is currently being treated for now. She had Neulasta within the last week. She denies any fever sweats or chills. She has not had a productive cough follow-up at this point. She has a nasal cannula on that EMS placed however she is 100% on room air. No history of coronary artery disease she previously had a thrombosis and a port shortly after was placed but is never had a DVT or pulmonary emboli. No history of coronary artery disease. MD complaint: chest pain Onset (ago): minute(s) Timing of current episode: episodic Prior episodes: No Onset: during rest Pain location: substernal Pain radiation: none Severity: severe (Now resolved) Quality: sharp Relieving factors: nothing Exacerbating factors: nothing Associated symptoms: Reports dyspnea and nausea; Deny abdominal pain, diaphoresis, fever(s), leg edema, palpitations, sense of impending doom, syncope or vomiting Treatment prior to arrival: none, aspirin and other (Pain medication) Review of Systems Const: Reports: fatigue; Denies: fever(s), chills, malaise or diaphoresis ENMT: Denies: throat pain, ear or mastoid pain, nasal discharge or nasal congestion Card: Reports: chest pain; Denies: palpitations, irregular heart rhythm, edema or syncope Resp: Reports: dyspnea GI: Reports: nausea; Denies: abdominal pain or vomiting : Denies: flank pain, difficulty voiding, dysuria, urinary frequency or urinary urgency Musc: Denies: neck pain or back pain Skin/Breast: Denies: rash or pruritus PFS ED PFSH: Medical History (Updated 12/26/21 @ 13:28 by Ward Navas DO) Cervical cancer Surgical History (Updated 12/26/21 @ 09:29 by Ward Navas DO) H/O: hysterectomy Social History (Updated 12/26/21 @ 09:29 by Ward Navas DO) Smoking and tobacco status: never smoked Alcohol intake: never Physical Exam Const: GENERAL APPEARANCE: cooperative and comfortable ORIENTATION/CONSCIOUSNESS: Yes awake, Yes oriented to person, Yes oriented to place and Yes oriented to time HENMT: COMMON NORMALS: normocephalic, atraumatic, hearing grossly normal bilaterally, external ears normal, EAC's normal, TM's normal bilaterally, Normal nasal mucous membranes and turbinates present, moist oral mucous membranes and oropharynx normal HEAD & SCALP: normocephalic and atraumatic NOSE: Normal nasal mucous membranes and turbinates present EXTERNAL EAR: Yes external ears normal EXTERNAL AUDITORY CANAL: EAC's normal TYMPANIC MEMBRANE: TM's normal bilaterally Eye: COMMON NORMALS: Equal, round and reactive pupils present, EOMs intact bilaterally, conjunctivae normal and no scleral icterus CONJUNCTIVA: Yes conjunctivae normal PUPIL: Yes Equal, round and reactive pupils present Neck/C-Spine: COMMON NORMALS: full ROM, no lymphadenopathy, supple and no JVD Lymph: LYMPHATIC: no lymphadenopathy noted and no lymphedema noted Resp: COMMON NORMALS: normal respiratory effort, No retractions, No use of accessory muscles and clear to auscultation bilaterally AUSCULTATION: clear to auscultation bilaterally Cardio: COMMON NORMALS: no JVD, regular rate, regular rhythm and No murmurs present (Cardio) RATE: regular rate RHYTHM: regular rhythm GI: COMMON NORMALS: Soft to palpation and No hepatosplenomegaly present AUSCULTATION: Yes normoactive bowel sounds PALPATION: Yes Soft to palpation, No Tenderness to palpation present (GI), No Guarding due to palpation present (GI) and Yes No hepatosplenomegaly present Extremity: COMMON NORMALS: normal to inspection, capillary refill normal, no clubbing, cyanosis or edema, no calf tenderness and no pedal edema Neuro: SENSORIUM/ORIENTATION: Yes oriented to person, Yes oriented to place and Yes oriented to time Skin: COMMON NORMALS: no rashes or lesions noted GENERAL SKIN EXAM: no rashes or lesions noted Course Vital Signs: Vital signs: Vital Signs Temperature 97.8 F 12/26/21 09:10 Pulse Rate 90 12/26/21 11:21 Respiratory Rate 18 12/26/21 11:21 Blood Pressure 128/72 12/26/21 11:21 Pulse Oximetry 100 12/26/21 11:21 Oxygen Delivery Me thod 12/26/21 11:21 MDM - Chest Pain Medical Decision Making CTA shows left hilar lymphadenopathy suspicious for metastasis but we do not have previous imaging to compare to. Troponins negative EKG does not show anything acute discharge patient home encouraged her to follow-up with her primary care doctor return if she has further problems also encouraged her to follow-up with her oncology group and compare today's imaging to previous recent imaging in [place]. Medical Records I reviewed the patient's medical records. Lab Data I reviewed the patient's lab results. : 12/26/21 09:20 12/26/21 09:20 Radiology Impressions Chest X-Ray 12/26/21 09:18 IMPRESSION: 1. No acute cardiopulmonary finding. 2. Left subclavian port in satisfactory position. Chest CTA 12/26/21 10:48 IMPRESSION: 1. No pulmonary embolism. 2. LEFT hilar low-attenuation mass measures 2.5 x 2.2 cm is new since 2019. Highly suspicious for an abnormal lymph node. Very low attenuation could potentially be a pericardial recess but less likely as it is new in the Hounsfield units are slightly elevated. Laboratory Results WBC 7.8 10^3/uL (4.0-10.0) 12/26/21 09:20 RBC 3.19 10^6/uL (4.1-5.3) L 12/26/21 09:20 Hgb 9.9 g/dL (11.5-15.3) L 12/26/21 09:20 Hct 29.9 % (37.0-47.0) L 12/26/21 09:20 MCV 93.7 fl (81-99) 12/26/21 09:20 MCH 31.0 pg (28.0-34.0) 12/26/21 09:20 MCHC 33.1 g/dL (30.0-36.0) 12/26/21 09:20 RDW 13.7 % (12.1-15.1) 12/26/21 09:20 Plt Count 170 10^3/cmm (130-400) 12/26/21 09:20 MPV 10.5 fL (7.4-10.4) H 12/26/21 09:20 Lymph % (Auto) Not Reportable 12/26/21 09:20 [place] % (Auto) Not Reportable 12/26/21 09:20 Lymph # (Auto) Not Reportable 12/26/21 09:20 [place] # (Auto) Not Reportable 12/26/21 09:20 Total Counted 100 (0-100) 12/26/21 09:20 Atypical Lymphs % Not Reportable 12/26/21 09:20 Absolute Neutrophils 5.7 10^3/cmm (1.4-6.5) 12/26/21 09:20 Segmented Neutrophils 52 % 12/26/21 09:20 Abs Segm Neuts (Man) 4.1 10/cmm (1.6-7.1) 12/26/21 09:20 Band Neutrophils 21.0 % 12/26/21 09:20 Abs Band Neuts (Man) 1.6 10^3/cmm (0.0-1.2) H 12/26/21 09:20 Lymphocytes (Manual) 16 % 12/26/21 09:20 Monocytes (Manual) 7.0 % 12/26/21 09:20 Absolute Monocytes 0.5 10^3/cmm (0.1-0.6) 12/26/21 09:20 Eosinophils (Manual) 3 % 12/26/21 09:20 Absolute Eosinophils 0.2 10^3/cmm (0.0-0.7) 12/26/21 09:20 Basophils (Manual) Not Reportable 12/26/21 09:20 Metamyelocytes 1.0 % 12/26/21 09:20 Smudge Cells Trace 12/26/21 09:20 Toxic Granulation 3+ H 12/26/21 09:20 Dohle Bodies 1+ H 12/26/21 09:20 Platelet Estimate Normal (Normal) 12/26/21 09:20 Sodium 140 mmol/L (136-145) 12/26/21 09:20 Potassium 3.4 mmol/L (3.5-5.1) L 12/26/21 09:20 Chloride 102 mmol/L (98-107) 12/26/21 09:20 Carbon Dioxide 25 mmol/L (22-29) 12/26/21 09:20 Anion Gap 16.4 (5-19) 12/26/21 09:20 BUN 7 mg/dL (6-20) 12/26/21 09:20 Creatinine 0.7 mg/dL (0.5-0.9) 12/26/21 09:20 GFR Calculation 88.9 mL/min (90-130) L 12/26/21 09:20 Glucose 90 mg/dL (65-115) 12/26/21 09:20 Calculated Osmolality 288 mOsm/kg (285-295) 12/26/21 09:20 Calcium 9.2 mg/dL (8.5-10.5) 12/26/21 09:20 Total Bilirubin 0.6 mg/dL (0.15-1.2) 12/26/21 09:20 AST 13 U/L (0-32) 12/26/21 09:20 ALT 9 U/L (0-33) 12/26/21 09:20 Alkaline Phosphatase 99 IU/L (35-105) 12/26/21 09:20 Troponin T Baseline 9 ng/L (0-10) 12/26/21 09:20 Troponin T 120 Minute 7.70 ng/L (0-10) 12/26/21 12:00 Delta Troponin T 0.82 ABS# (0-10) 12/26/21 12:00 Total Protein 6.0 g/dL (6.6-8.7) L 12/26/21 09:20 Albumin 3.8 g/dL (3.5-5.2) 12/26/21 09:20 Globulin 2.2 g/dL (1.3-4.6) 12/26/21 09:20 Discharge Plan Discharge Patient Disposition: Home Clinical Impression: Atypical chest pain, Cervical ca, Hilar lymphadenopathy Condition: Stable Prescriptions: No Action acetaminophen [Tylenol Extra Strength] 500 mg Tablet 1,000 mg PO PRN ondansetron HCl 8 mg tablet 8 mg PO Q6H PRN (Reason: Nausea) prochlorperazine maleate 10 mg tablet 10 mg PO Q4H morphine 30 mg tablet extended release 30 mg PO TID oxycodone-acetaminophen 10-325 mg tablet 1 tab PO TID Discharge Orders: Discharge ED (Routine); Ordered 12/26/21 Ordered By: Ward Navas Referrals: Danielle Benitez MD [Primary Care Provider] - Discharge Diet: Usual diet Discharge Activity: Increase activity as tolerated Patient Instructions: Opioid Safety Activity Restrictions/Additional Instructions: Follow-up with your primary oncology team in [place] recommend that you inform them of the scan today so that they can review and compare to most recent scans that they have on file. Coding Level of Care Code ED [employer] Manager for Chg Fwd Exam Comprehensive
[2021-12-26 09:46] LABS: Hematocrit 29.9 % (37.0-47.0); Hemoglobin 9.9 g/dL (11.5-15.3); Mean Corpuscular HGB Conc 33.1 g/dL (30.0-36.0); Mean Corpuscular Volume 93.7 fl (81-99); Mean Platelet Volume 10.5 fL (7.4-10.4); Platelet Count 170 10^3/cmm (130-400); Red Blood Count 3.19 10^6/uL (4.1-5.3); Red Cell Distribution Width 13.7 % (12.1-15.1); White Blood Count 7.8 10^3/uL (4.0-10.0)
[2021-12-26 10:01] LABS: Troponin(5th) Baseline 9 ng/L (0-10)
--- NOTE | 2021-12-26 10:48 | CT_ITS ---
WS: [id number] CT CHEST ANGIOGRAPHY WITH REFORMATS HISTORY: dyspnea TECHNIQUE: Contiguous axial images are obtained through the chest during arterial injection of intrav enous contrast. Images are reconstructed to evaluate the pulmonary arteries. MIP imaging also reviewe d. All CT scans at [facility] use at least one of these dose optimization techniques: automat ed exposure control; mA and/or kV adjustment per patient size (includes targeted exams where dose is matched to clinical indication); or iterative reconstruction. CONTRAST: Omnipaque 350; 61 mL IV. DLP: 280.76 mGy.cm COMPARISON: 12/11/2018 Good opacification of the pulmonary arteries. No filling defects or pulmonary emboli are identified. Normal size pulmonary artery. Normal-sized thoracic aorta. Mild enlargement of the heart. No pericardial effusion. Soft tissue nodule at the LEFT hilum measures 2.5 x 2.2 cm. New since the prior examination of 12/11/2018. Hounsfield units are slightly elevated s uggesting this is not a pericardial recess but suspicious for a lymph node. Lung volumes are decrease d. Bilateral groundglass attenuation may be in part due to the poor inspiration. No pulmonary mass or nodule. There are a few scattered low-attenuation lesions throughout the liver which have been present on salima or studies. Gallbladder is negative. Metallic artifact through the LEFT upper abdomen may be from a p rior lymph node dissection or adrenal dissection. The LEFT adrenal gland is not visualized. Thoracic spondylosis. CT/CT angio chest PE protcl [id number] IMPRESSION: 1. No pulmonary embolism. 2. LEFT hilar low-attenuation mass measures 2.5 x 2.2 cm is new since 2019. Hi ghly suspicious for an abnormal lymph node. Very low attenuation could potentia lly be a pericardial recess but less likely as it is new in the Hounsfield unit s are slightly elevated.
--- NOTE | 2021-12-26 11:18 | ECG_ITS ---
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 Measurements Intervals [place] Rate: 90 P: 34 IL: 129 QRS: -33 QRSD: 90 T: 10 QT: 373 QTc: 458 Interpretive Statements SINUS RHYTHM LEFT AXIS DEVIATION [QRS AXIS < -30] LOW QRS VOLTAGE IN PRECORDIAL LEADS [QRS DEFLECTION < 1.0 mV IN CHEST LEADS] POSSIBLE ANTERIOR MYOCARDIAL INFARCTION , PROBABLY OLD [30 ms Q WAVE IN V3/V4, OR R < 0.2 mV IN V4] Compared to ECG 12/26/2021 09:14:27 Left-axis deviation now present Myocardial infarct finding still present Electronically Signed On 12-26-2021 16:34:02 CDT by Toan Benitez M.D. [id number]
[2021-12-26 11:21] VITALS: BP 128/72; PULSE 90; RESP 18; O2SAT 100
[2021-12-26 11:24] LABS: Absolute Eosinophils 0.2 10^3/cmm (0.0-0.7); Absolute Neutrophil 5.7 10^3/cmm (1.4-6.5); Absolute Segmented Neutrophil 4.1 10/cmm (1.6-7.1); Band Neutrophils Absolute 1.6 10^3/cmm (0.0-1.2); Eosinophils 3 %; Lymphocytes 16 %; Monocytes Absolute 0.5 10^3/cmm (0.1-0.6); Platelet Estimate Normal (Normal); Segmented Neutrophils 52 %; Total Cells Counted 100 (0-100)
[2021-12-26 11:25] LABS: Dohle Bodies 1+; Smudge Cells Trace; Toxic Granulation 3+
[2021-12-26] MEDS: iohexol 350 mg/mL 100 mL Btl IV (11:27)
[2021-12-26 12:57] LABS: Alanine Aminotransferase 9 U/L (0-33); Albumin Level 3.8 g/dL (3.5-5.2); Alkaline Phosphatase 99 IU/L (35-105); Anion Gap 16.4 (5-19); Aspartate Amino Transferase 13 U/L (0-32); Blood Urea Nitrogen 7 mg/dL (6-20); Calcium 9.2 mg/dL (8.5-10.5); Carbon Dioxide 25 mmol/L (22-29); Chloride 102 mmol/L (98-107); Globulin 2.2 g/dL (1.3-4.6); Glomerular Filtration Rate 88.9 mL/min (90-130); Glucose 90 mg/dL (65-115); Osmolality Calculated 288 mOsm/kg (285-295); Potassium 3.4 mmol/L (3.5-5.1); Sodium 140 mmol/L (136-145); Total Bilirubin 0.6 mg/dL (0.15-1.2)
[2021-12-26 13:49] LABS: Troponin 5 2HR Delta 0.82 ABS# (0-10)
== END 2021-12-26 13:39 | disposition home or self-care (01) ==
PROVIDERS: Emergency Provider Family Medicine; PCP Family Medicine
DX: R07.89 Other chest pain (principal); C53.9 Malignant neoplasm of cervix uteri, unspecified; R59.1 Generalized enlarged lymph nodes
CPT/HCPCS: 36415; 71045; 71275; 80053; 84484; 85007; 85025; 93005; 99285; Q9967

== ENCOUNTER → 2022-02-21 09:29 | Outpatient (BNVA) | payer MEDICARE, MEDICAID, SELFPAY | PROVIDERS: PCP Family Medicine; Visit Provider Podiatrist Foot & Ankle Surgery | DX: M72.2 Plantar fascial fibromatosis (principal); G62.9 Polyneuropathy, unspecified; R60.9 Edema, unspecified | CPT/HCPCS: 73630; 99203 ==

== ENCOUNTER 2022-03-26 06:00 | Outpatient (RCR) | payer MEDICARE, MEDICAID, SELFPAY | END 2022-04-01 23:59 | disposition home or self-care (01) | LOC: MOT 06:00 | PROVIDERS: PCP Family Medicine; Visit Provider Obstetrics & Gynecology | DX: I89.0 Lymphedema, not elsewhere classified (principal) | CPT/HCPCS: 97140; 97166 ==

== ENCOUNTER 2022-04-02 06:00 | Outpatient (RCR) | payer MEDICARE, MEDICAID, SELFPAY | END 2022-04-02 23:59 | disposition home or self-care (01) | LOC: MOT 06:00 | PROVIDERS: PCP Family Medicine; Visit Provider Obstetrics & Gynecology | DX: I89.0 Lymphedema, not elsewhere classified (principal) | CPT/HCPCS: 97140 ==

== ENCOUNTER 2022-11-13 11:27 | Outpatient (RCR) | payer MEDICARE, MEDICAID, SELFPAY | END 2022-11-29 23:59 | disposition home or self-care (01) | LOC: SPT 11:27 | PROVIDERS: Visit Provider Obstetrics & Gynecology | DX: G62.0 Drug-induced polyneuropathy (principal); C53.9 Malignant neoplasm of cervix uteri, unspecified | CPT/HCPCS: 97110; 97161 ==

== ENCOUNTER 2022-11-30 06:00 | Outpatient (RCR) | payer MEDICARE, MEDICAID, SELFPAY | END 2022-12-30 23:59 | disposition home or self-care (01) | LOC: SPT 06:00 | PROVIDERS: Visit Provider Obstetrics & Gynecology | DX: G62.0 Drug-induced polyneuropathy (principal) | CPT/HCPCS: 97110 ==

== ENCOUNTER 2022-12-31 06:00 | Outpatient (RCR) | payer MEDICARE, MEDICAID, SELFPAY | END 2023-01-30 23:59 | disposition home or self-care (01) | LOC: SPT 06:00 | PROVIDERS: Visit Provider Obstetrics & Gynecology | DX: G62.0 Drug-induced polyneuropathy (principal) | CPT/HCPCS: 97110 ==